=== PATIENT | male | born 1960 | race Caucasian/White ===

== ENCOUNTER 2022-07-17 10:30 | Outpatient (CLI) | payer OTHER, SELFPAY ==
[2022-07-17] MEDS: HEPARIN SODIUM LOCK FLUSH 500 UNITS/5 ML SYRINGE IV PUSH (10:59)
[2022-07-17 11:02] VITALS: BMI 25.7
[2022-07-17 11:03] VITALS: BP 139/70; PULSE 92; RESP 16; TEMP 36.2; O2SAT 95
--- NOTE | 2022-07-17 11:07 | PC.NURSE ---
Patient here for monthly port flush. Education given. Port accessed and flushed SEE MAR. Tolerated well. Safe exit of hospital escorted with .
== END 2022-07-17 10:31 | disposition home or self-care (01) ==
PROVIDERS: Visit Provider Internal Medicine Hematology & Oncology
DX: Z45.2 Encounter for adjustment and management of vascular access device (principal); C64.9 Malignant neoplasm of unspecified kidney, except renal pelvis
CPT/HCPCS: 96523

== ENCOUNTER 2022-11-06 11:40 | Outpatient (CLI) | payer OTHER, SELFPAY ==
[2022-11-06] MEDS: HEPARIN SODIUM LOCK FLUSH 500 UNITS/5 ML SYRINGE IV PUSH (12:08)
--- NOTE | 2022-11-06 12:09 | PC.NURSE ---
Patient here for monthly port a cath flush. Education given. No concerns voiced. Port flush administered- SEE MAR. Tolerated well. Safe exit of hospital. Will call next month when wants to come for port flush.
== END 2022-11-06 11:41 | disposition home or self-care (01) ==
LOC: CHSTREATRM 11:45
PROVIDERS: Visit Provider Internal Medicine Hematology & Oncology
DX: C64.9 Malignant neoplasm of unspecified kidney, except renal pelvis (principal)
CPT/HCPCS: 96523

== ENCOUNTER 2024-11-09 20:02 | Emergency (ER) | payer MEDICARE, SELFPAY ==
[2024-11-09] VITALS (25 sets, daily range): BP systolic 111–191; BP diastolic 53–127; PULSE 102–147; RESP 20–42; TEMP 36.9; O2SAT 84–100
--- NOTE | ~2024-11-09 | CT_ITS ---
EXAMINATION: CTA chest PE protocol DATE: 11/09/2024 21:21 INDICATION: Shortness of breath. TECHNIQUE: Computed tomography angiography (CTA) of the chest was performed with 100 mL Omnipaque-350 intravenous contrast timed to evaluate the pulmonary arteries. Coronal maximum intensity projection 3D-reconstructions were created by the technologist. Automated exposure control and iterative reconst ruction technique were employed. The dose-length product was 255.97 mGy-cm. COMPARISON: Chest single view 11/09/2024 FINDINGS: There is moderate emphysema. There is mild atelectasis in right lower lobe. There are airsp jorge opacities in left perihilar region with volume loss, consistent with radiation pneumonitis. There is a small left pleural effusion. There is a trace right pleural effusion. Cardiomegaly is noted. Th ere are coronary artery calcifications. No pericardial effusion. There is no pulmonary embolus. 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 There is no significant stenosis of celiac axis. There is mild thoracic spondylosis. There is a right internal jugular port with tip at superior cavo atrial junction. IMPRESSION: 1. No pulmonary embolus. 2. Airspace opacities in left perihilar region with volume loss, consistent with radiation pneumoniti s. 3. Small left pleural effusion. Trace right pleural effusion. 4. Moderate emphysema. Reviewed, dictated and finalized at location A. SPRING DEVELOPER IMPRESSION: 1. No pulmonary embolus. 2. Airspace opacities in left perihilar region with volume loss, consistent wit h radiation pneumonitis. 3. Small left pleural effusion. Trace right pleural effusion. 4. Moderate emphysema.
--- NOTE | ~2024-11-09 | XR_ITS ---
EXAMINATION: XR chest 1V portable DATE: 11/09/2024 20:19 INDICATION: Shortness of breath. TECHNIQUE: A single frontal view of the chest was obtained. COMPARISON: None. FINDINGS: There is volume loss of left hemithorax. There are airspace opacities in right perihilar re gion and left mid and lower lung zones. There is a small left pleural effusion. No pneumothorax. The heart size is normal. There is a right internal jugular port with tip at superior cavoatrial junction . IMPRESSION: 1. Airspace opacities in right perihilar region and left mid and lower lung zones with volume loss of left hemithorax, which may be atelectasis, pneumonia, and/or chronic lung disease. 2. Small left pleural effusion. Reviewed, dictated and finalized at location A. LANGUAGE TRANSLATOR IMPRESSION: 1. Airspace opacities in right perihilar region and left mid and lower lung zon es with volume loss of left hemithorax, which may be atelectasis, pneumonia, an d/or chronic lung disease. 2. Small left pleural effusion.
[2024-11-09] MEDS: IPRATROPIUM 0.5 MG/ALBUTEROL SULFATE 2.5 MG AMPUL.NEB 3 ML INHALATION (20:03)
[2024-11-09] MEDS: MAGNESIUM SULF 2 GM/WATER 50ML 2 GM/50 ML BAG IVPB (20:04)
--- NOTE | 2024-11-09 20:11 | ECG_ITS ---
Test Date: 2024-11-09 20:20:19 Measurements Intervals Dewitt Rate: 125 P: 0 MD: 0 QRS: 265 QRSD: 99 T: 100 QT: 296 QTc: 428 Interpretive Statements PROBABLE ATRIAL FIBRILLATION, HOWEVER, DIFFICULT TO INTERPRET DUE TO SIGNIFICANT BASELINE ARTIFACT. INDETERMINATE AXIS INCOMPLETE RIGHT BUNDLE BRANCH BLOCK [90+ ms QRS DURATION, TERMINAL R IN V1/V2, 40+ ms S IN I/aVL/V4/V5/V6] INTERPRETATION LIMITED BY BASELINE ARTIFACT No previous ECG available for comparison Electronically Signed On 11-10-2024 11:48:55 [employer]ITTED GOODS SHAPER by Juaquin Bonner M.D.
[2024-11-09] MEDS: ALBUTEROL SULFATE NEB 2.5 MG/3 ML INH INHALATION (20:16)
[2024-11-09] MEDS: FUROSEMIDE INJ 40 MG/4 ML VIAL IV PUSH (20:21)
[2024-11-09 20:23] LABS: Base Excess ABG 9.5 mmol/L (0-2); HCO3 ABG 39.7 mmol/L (23-29); Oxygen Content ABG 16.8 %vol (16.0-22.0); Oxyhemoglobin 98.5 % (94-100); PO2 ABG 198.7 mmHg (75-85); pH ABG 7.26 (7.35-7.45)
[2024-11-09 20:30] LABS: Hematocrit 35.6 % (37.0-46.0); Mean Corpuscular HGB Conc 30.9 g/dL (32-36); Mean Corpuscular Hemoglobin 27.2 pg (27.0-31.0); Mean Corpuscular Volume 88.1 fL (78.0-102.0); Mean Platelet Volume 9.8 fl (8.7-11.0); Platelet Count Result 396 K/mm3 (150-420); Red Blood Count 4.04 M/mm3 (4.70-6.10); Red Cell Distribution Width 17.4 % (11.6-14.4)
[2024-11-09] MEDS: dilTIAZem HCl INJ 25 MG/5 ML VIAL 5 MG IV PUSH ×2 (20:33→20:53)
--- NOTE | 2024-11-09 20:33 | PC.NURSE ---
[facility] LABORED. PATIENT STATES HE CANT BREATHE. CONTINUE TO WAIT ON RT FOR BIPAP
[2024-11-09 20:36] LABS: Modified Allen's Test Pass; PCO2 ABG 91.2 mmHg (35-45); Site Drawn LEFT RADIAL
[2024-11-09 20:37] LABS: Device SIMPLE MASK
[2024-11-09 20:38] LABS: White Blood Count 26.5 K/mm3 (4.8-10.8)
[2024-11-09 20:39] LABS: INR 0.9; Partial Thromboplastin Time 41.9 Sec (23.9-30.70); Prothrombin Time 10.3 Seconds (9.50-12.1)
[2024-11-09 20:40] LABS: Lactic Acid Reflex 3.7 mmol/L (0.4-2.0)
[2024-11-09 20:44] LABS: Band Neutrophils Percent 0 % (0-6); Basophils Percent Manual 0 % (0-1); Eosinophils Absolute Manual 1.06 K/mm3 (0.02-0.50); Eosinophils Percent Manual 4 % (1-6); Lymphocytes Absolute Manual 0.53 K/mm3 (1.1-4.5); Lymphocytes Percent Manual 2 % (18-44); Monocytes Absolute Manual 2.65 K/mm3 (0.1-0.90); Monocytes Percent Manual 10 % (3-9); Neutrophils Absolute Manual 22.26 K/mm3 (1.3-6.7); Neutrophils Percent Manual 84 % (46-73); Platelet Estimate Adequate (Adequate)
--- NOTE | 2024-11-09 20:46 | PC.NURSE ---
RT AT THE BEDSIDE SETTING UP FOR BIPAP AT 10/5
[2024-11-09 20:50] LABS: Alanine Aminotransferase 22 U/L (16-63); Albumin Level 3.4 g/dL (3.4-5.0); Alkaline Phosphatase 117 U/L (46-116); Anion Gap 7 mmol/L (4-12); Aspartate Amino Transferase 15 U/L (15-37); Bilirubin,Total 0.3 mg/dL (0.00-1.00); Blood Urea Nitrogen 60 mg/dL (7-18); Calcium 9.6 mg/dL (8.5-10.1); Carbon Dioxide 38 mmol/L (21-32); Chloride 92 mmol/L (98-108); Estimated CRCL calculation 34 ml/min; Estimated Glomerular Filt Rate 39; Glucose 286 mg/dL (70-99); Magnesium 2.1 mg/dL (1.8-2.4); NT Pro B Type Natriuretic Pept 2373 pg/mL (0-125); Osmolality Calculated 310 mOsm/kg (285-295); Potassium 4.2 mmol/L (3.5-5.1); Sodium 137 mmol/L (136-145); Total Protein 7.8 g/dL (6.4-8.2)
--- NOTE | 2024-11-09 20:59 | PC.NURSE ---
PATIENT TRANSPORTED TO CT VIA STRETCHER, BIPAP, RT AND THIS RN
[2024-11-09 21:12] LABS: Influenza A QL RT-PCR Negative (Negative); Influenza B QL RT-PCR Negative (Negative); RSV RNA, RT-PCR Negative (Negative); SARS-CoV-2 RNA PCR Negative (Negative)
--- NOTE | 2024-11-09 21:20 | PC.NURSE ---
RETURNED TO ROOM FROM CT. BIPAP IN PLACE. , [place], IS NOW AT THE BEDSIDE
[2024-11-09 21:50] LABS: Base Excess ABG 3.1 mmol/L (0-2); HCO3 ABG 29.5 mmol/L (23-29); Oxygen Saturation ABG 99.2 % (95-97); Oxyhemoglobin 98.3 % (94-100); PCO2 ABG 53.8 mmHg (35-45); PO2 ABG 229.7 mmHg (75-85); pH ABG 7.36 (7.35-7.45)
[2024-11-09 21:51] LABS: Device BIPAP; Modified Allen's Test Pass; Site Drawn LEFT RADIAL
[2024-11-09 21:53] LABS: Reflex Lactic Acid Yes or No Add Lactic
--- NOTE | 2024-11-09 21:57 | ED_ITS ---
HPI - SOB/Dyspnea General Chief Complaint: Shortness of Breath/Dyspnea Stated Complaint: SOB Time Seen by Provider: 11/09/24 20:05 Source: patient, family and EMS Mode of arrival: EMS Limitations: no limitations History of Present Illness HPI Narrative: this is a 64-year-old male with a history of COPD, history of lung cancer and atrial fibrillation presents with a 2 day history of shortness of breath worsening over last couple of hours and called EMS and transferred to the emergency department. Patient having trouble with breathing and with his history of AFib had a blood pressure that was elevated with a rapid ventricular response, the patient has some oxygen at home that he wears continuously at4L per nasal cannula. Patient is a do not intubate, currently no fever chills no nausea vomiting no abdominal pain. MD elicited complaint: shortness of breath Pertinent past history: COPD, congestive heart failure and diabetes Onset (ago): day(s) Context: recent illness Timing: constant Severity: similar to previous episodes Exacerbating factors: exertion Relieving factors: oxygen, rest, bronchodilators and upright position Known history of: COPD, congestive heart failure and diabetes Related Data Home Medications ?Medication ?Instructions ?Recorded ?Confirmed ?Last Taken ?Type amlodipine 10 mg tablet 10 mg PO DAILY 07/17/22 07/17/22 Unknown History apixaban 5 mg tablet (Eliquis) 5 mg PO BID 07/17/22 07/17/22 Unknown History fluticasone 250 mcg-salmeterol 50 1 inh inhalation Q12H 07/17/22 07/17/22 Unknown History mcg/dose blistr powdr for inhalation (Advair Diskus) furosemide 40 mg tablet (Lasix) 40 mg PO DAILY 07/17/22 07/17/22 Unknown History metformin 500 mg tablet 500 mg PO BIDWMEAL 07/17/22 07/17/22 Unknown History sildenafil 50 mg tablet 50 mg PO DAILY PRN Erectile 07/17/22 07/17/22 Unknown History Dysfunction simvastatin 20 mg tablet 20 mg PO HS 07/17/22 07/17/22 Unknown History Allergies Allergy/AdvReac Type Severity Reaction Status Date / Time No Known Allergies Allergy Verified 11/09/24 20:28 Review of Systems 2 Review of Systems: All systems reviewed & are unremarkable except as noted in HPI and below PMFSH Past Medical History Medical History Diabetes mellitus Afib COPD (chronic obstructive pulmonary disease) Exam 2 Const: General: alert Nutritional Appearance: well nourished O rientation/consciousness: patient oriented x3 Limitations: no limitations Eyes: Conjunctivae: conjunctivae normal Pupils: Equal, round and reactive pupils present Chest: Chest palpation & inspection: normal inspection of the chest Resp: Effort & Inspection: labored and tachypneic Auscultation: diminished lung sounds Cardio: Rate: tachycardic Rhythm: abnormal rhythm GI: GI Palp: Yes Soft to palpation Auscultation: normal bowel sounds Skin: General skin exam: normal color Rashes: no rashes Neuro: General: patient oriented x3, moves all extremities, no meningeal signs and no focal motor deficits Extrem: General: edema Course Course Emergency Course: patient with labored breathing and respiratory distress patient is a do not intubate, brought in by EMS with some labored breathing and shortness of breath received DuoNebs and albuterol, also received Solu-Medrol in route via EMS, magnesium 2g. Patient also has some peripheral edema and received for 40mg of IV Lasix. Chest x-ray shows some opacities and was started on ceftriaxone and azithromycin. I had an elevated D-dimer and CTA is negative for pulmonary embolism but does show evidence of moderate emphysema with opacities. Patient was started on ceftriaxone and azithromycin. Respiratory therapy and started on BiPAP at 12 in 6. Blood work shows a CBC of 6.2 with a blood gas consistent with respiratory acidosis. Lactic acid of 3.7. Patient has a fast with a ventricular response RVR with AFib and received 10mg of IV Cardizem and blood pressure has improved to 140 7/88 with heart rate 115. Vital Signs Vital signs: Vital Signs Temperature 36.9 C 11/09/24 20:02 Pulse Rate 132 H 11/09/24 20:02 Respiratory Rate 42 H 11/09/24 20:02 Blood Pressure 178/118 H 11/09/24 20:02 Pulse Oximetry 98 11/09/24 20:02 Oxygen Delivery High Flow Therapy with Na 11/09/24 20:02 Oxygen Flow Rate 6 11/09/24 20:02 Temperature 36.9 C 11/09/24 20:02 Pulse Rate 115 H 11/09/24 21:30 Respiratory Rate 37 H 11/09/24 21:30 Blood Pressure 147/88 H 11/09/24 21:18 Pulse Oximetry 99 11/09/24 21:30 Oxygen Delivery BiPAP 11/09/24 21:30 Oxygen Flow Rate 6 11/09/24 20:46 MDM - SOB/Dyspnea Lab Data 11/09/24 20:22 11/09/24 20:22 Labs: Lab Results 11/09/24 11/09/24 Range/Units 20:22 21:26 WBC 26.5 H* (4.8-10.8) K/mm3 RBC 4.04 L (4.70-6.10) M/mm3 Hgb 11.0 L (12.4-15.3) g/dL Hct 35.6 L (37.0-46.0) % MCV 88.1 (78.0-102.0) fL MCH 27.2 (27.0-31.0) pg MCHC 30.9 L (32-36) g/dL RDW 17.4 H (11.6-14.4) % Plt Count 396 (150-420) K/mm3 MPV 9.8 (8.7-11.0) fl Immature Gran % (Auto) Not Reportable Neut % (Auto) Not Reportable Lymph % (Auto) Not Reportable [place] % (Auto) Not Reportable Eos % (Auto) Not Reportable Baso % (Auto) Not Reportable Lymph # (Auto) Not Reportable [place] # (Auto) Not Reportable Eos # (Auto) Not Reportable Baso # (Auto) Not Reportable Abs Immat Gran (auto) Not Reportable Absolute Neuts (auto) Not Reportable Absolute Nucleated RBC Not Reportable Neutrophils % (Manual) 84 H (46-73) % Band Neutrophils % 0 (0-6) % Lymphocytes % (Manual) 2 L (18-44) % Monocytes % (Manual) 10 H (3-9) % Eosinophils % (Manual) 4 (1-6) % Basophils % (Manual) 0 (0-1) % Nucleated RBC % Not Reportable Abs Neuts (Manual) 22.26 H (1.3-6.7) K/mm3 Abs Lymphs (Manual) 0.53 L (1.1-4.5) K/mm3 Abs Monocytes (Manual) 2.65 H (0.1-0.90) K/mm3 Absolute Eos (Manual) 1.06 H (0.02-0.50) K/mm3 Abs Basophils (Manual) 0.00 (0-0.1) K/mm3 Platelet Estimate Adequate (Adequate) Schistocytes Not Reportable PT 10.3 (9.50-12.1) Seconds INR 0.9 APTT 41.9 H (23.9-30.70) Sec D-Dimer 2.20 H* (0.19-0.50) mg/L Expiratory Pressure Not Reportable Inspiratory Pressure Not Reportable Sodium 137 (136-145) mmol/L Potassium 4.2 (3.5-5.1) mmol/L Chloride 92 L (98-108) mmol/L Carbon Dioxide 38 H (21-32) mmol/L Anion Gap 7 (4-12) mmol/L BUN 60 H (7-18) mg/dL Creatinine 1.77 H (0.70-1.30) mg/dL Estim Creat Clear Calc 34 ml/min Estimated GFR 39 L (59 - ) Glucose 286 H (70-99) mg/dL Calculated Osmolality 310 H (285-295) mOsm/kg Lactic Acid 3.7 H (0.4-2.0) mmol/L Calcium 9.6 (8.5-10.1) mg/dL Magnesium 2.1 (1.8-2.4) mg/dL Total Bilirubin 0.3 (0.00-1.00) mg/dL AST 15 (15-37) U/L ALT 22 (16-63) U/L Alkaline Phosphatase 117 H (46-116) U/L Troponin I 45.0 (0.00-60.4) ng/L NT-Pro-B Natriuret Pep 2373 H (0-125) pg/mL Total Protein 7.8 (6.4-8.2) g/dL Albumin 3.4 (3.4-5.0) g/dL Influenza A (RT-PCR) Negative (Negative) Influenza B (RT-PCR) Negative (Negative) RSV (RT-PCR) Negative (Negative) SARS-CoV-2 RNA (RT-PCR) Negative (Negative) ABG Data ABG results: 11/09/24 11/09/24 20:22 21:26 Puncture Site Left radial Left radial ABG pH 7.26 L 7.36 ABG pCO2 91.2 H* 53.8 H ABG pO2 198.7 H 229.7 H ABG PO2/FiO2 Ratio Not Reportable Not Reportable ABG HCO3 39.7 H 29.5 H ABG O2 Saturation 99.0 H 99.2 H ABG O2 Content 16.8 16.0 ABG Base Excess 9.5 H 3.1 H A-a Gradient Not Reportable Not Reportable Oxyhemoglobin 98.5 98.3 O2 Delivery Device Simple mask Bipap O2 Liters/Min Not Reportable Not Reportable Critical Care Time Critical Care Time Critical Care Time: Yes Total Critical Care Time: 45 Discharge Plan Discharge Clinical Impression: Respiratory distress COPD (chronic obstructive pulmonary disease) Qualifiers: COPD type: unspecified COPD Qualified Code(s): J44.9 - Chronic obstructive pulmonary disease, unspecified A-fib Qualifiers: Atrial fibrillation type: unspecified Qualified Code(s): I48.91 - Unspecified atrial fibrillation Pneumonia Qualifiers: Pneumonia type: due to unspecified organism Laterality: bilateral Lung location: unspecified part of lung Qualified Code(s): J18.9 - Pneumonia, unspecified organism Patient Disposition: Acute Care Hospital Condition: Stable Patient Language: Nepalese Prescriptions: No Action furosemide [Lasix] 40 mg Tablet 40 mg PO DAILY metformin 500 mg Tablet 500 mg PO BIDWMEAL fluticasone propion-salmeterol [Advair Diskus] 250-50 mcg/dose Blister With Device 1 inh INHALATION Q12H sildenafil 50 mg Tablet 50 mg PO DAILY PRN (Reason: Erectile Dysfunction) Rx Instructions: administer 30 minutes to 4 hours before activity amlodipine 10 mg Tablet 10 mg PO DAILY simvastatin 20 mg Tablet 20 mg PO HS Eliquis 5 mg Tablet 5 mg PO BID Follow-up/Referrals: Kiara,Gisela Birch MD [Primary Care Provider] - Time of Disposition: 22:58
--- NOTE | 2024-11-09 22:02 | PC.NURSE ---
PATIENT REPORTS THAT HE IS STARTING TO BREATHE BETTER. , [place], AT THE BEDSIDE. UPDATED PATIENT AND ON FACILITIES CALLED FOR TRANSFER
--- NOTE | 2024-11-09 22:20 | PC.NURSE ---
UPDATED AND PATIENT ON TRANSFER CALLS.
[2024-11-09 22:23] LABS: Lactic Acid 1.6 mmol/L (0.4-2.0)
--- NOTE | 2024-11-09 23:03 | PC.NURSE ---
PATIENT IS RESTING QUIETLY ON STRETCHER WITH AT HIS SIDE. BIPAP IN PLACE. [facility] NON LABORED AT THIS TIME. STARTING TO LAUGH WHILE IN ROOM.
--- NOTE | 2024-11-09 23:16 | PC.NURSE ---
PATIENT IS CURRENTLY RESTING ON STRETCHER WITH EYES CLOSED. [facility] NON LABORED. BIPAP IN PLACE. AT THE BEDSIDE. CALL LIGHT IN REACH
--- NOTE | 2024-11-09 23:48 | PC.NURSE ---
REPOSITIONED PATIENT FOR COMFORT. WATER GIVEN. WARM BLANKET GIVEN. PATIENT ASKED WHAT WE WERE WAITING ON. INFORMED PATIENT THAT THIS RN WAS WAITING ON ROOM ASSIGNMENT AT [facility]
[2024-11-10] VITALS (11 sets, daily range): BP systolic 115–117; BP diastolic 58–67; PULSE 96–112; RESP 19–27; O2SAT 100
[2024-11-10] MEDS: AZITHROMYCIN 500 MG/NS 250 ML 500 MG/250 ML BAG 250 MG IVPB (00:26)
--- NOTE | 2024-11-10 00:58 | PC.NURSE ---
NATHANIEL GALLEGOS NOTIFIED THAT AZITHROMYCIN IS INFUSING. CONTINUES TO NEED ROCEPHIN.
--- NOTE | 2024-11-11 12:59 | PC.NURSE ---
PRELIMINARY BLOOD CULTURE; NO GROWTH TO DATE
--- NOTE | 2024-11-16 12:42 | PC.NURSE ---
FINAL BLOOD CULTURE REPORT: NO GROWTH AFTER 5 DAYS, NO FURTHER ACTION OR CHANGE IN TREATMENT NEEDED.
== END 2024-11-10 01:53 | disposition short-term general hospital (02) ==
PROVIDERS: Emergency Provider Emergency Medicine; PCP Family Medicine
DX: J44.9 Chronic obstructive pulmonary disease, unspecified (principal); I48.91 Unspecified atrial fibrillation; J18.9 Pneumonia, unspecified organism; I50.9 Heart failure, unspecified; E11.9 Type 2 diabetes mellitus without complications; Z85.118 Personal history of other malignant neoplasm of bronchus and lung; Z20.822 Contact with and (suspected) exposure to COVID-19
CPT/HCPCS: 36415; 36600; 71045; 71275; 80053; 82805; 83605; 83735; 83880; 84484; 85018; 85025; 85380; 85610; 85730; 87040; 87637; 93005; 96365; 96367; 96375; 99285; J0456; J1940; J3475; Q9967